=== PATIENT | female | born 1940 | race African-American/Black ===

== ENCOUNTER 2019-02-27 20:06 | Emergency (ER) | payer MEDICARE, MEDICAID ==
[~2019-02-27] VITALS: Ht 162.6 cm; Wt 84.0 kg
[2019-02-27] MEDS ORDERED: CYCLOBENZAPRINE 10MG TABLET PO ONE (23:00)
[2019-02-27] MEDS ORDERED: KETOROLAC 30MG/ML VIAL IM ONE (23:00)
[2019-02-27] MEDS ORDERED: ONDANSETRON 4MG ODT PO ONE (23:30)
[2019-02-27] MEDS ORDERED: HYDROCODONE/ACETAMINOPHEN 5/325MG TABLET PO ONE (23:30)
[2019-02-28] MEDS ORDERED: KETOROLAC 60MG/2ML VIAL IM ONE (11:15)
[2019-02-28] MEDS ORDERED: ONDANSETRON 4MG ODT PO ONE (11:45)
[2019-02-28 11:56] VITALS: BP 166/62
== END 2019-02-28 11:52 | disposition home or self-care (01) ==
LOC: ER 22:23
DX: M54.5 Low back pain (principal); Z59.0 Homelessness; I10 Essential (primary) hypertension; Z88.0 Allergy status to penicillin; Z88.2 Allergy status to sulfonamides; Z88.1 Allergy status to other antibiotic agents
CPT/HCPCS: 96372; 99284; J1885; Q0162